=== PATIENT | male | born 1965 | race Caucasian/White ===

== ENCOUNTER 2017-11-21 09:22 | Inpatient (IN) | payer OTHER, MEDICAID ==
[~2017-11-21] VITALS: Ht 180.3 cm; Wt 80.3 kg
[2017-11-21 09:30] VITALS: BP 166/105
--- NOTE | 2017-11-21 09:45 | NUR ---
52/M BIB FAMILY c/o RIGHT LOWER ABDOME, LOWER BACK PAIN & bilateral foot numbness x1 week; and has not been on medication for about 8 months, pt states he only has his right kidney, c/o polyuria and polydipsia. HX [place], DM, high cholesterol, HTN, nephrectomy left kidney 1968, right hip replacement 1994. PT STATES LAST BM X 5 DAYS AGO. DENIES N/V/D; SKIN IS PINK/WARM/DRY; AAOX4 WITH EVEN AND STEADY GAIT; LUNGS CLEAR BL; PATIENT STATES PAIN OF 10/10 AT THIS TIME. PATIENT POSITIONED FOR COMFORT; HOB ELEVATED; BEDRAILS UP X2; BED DOWN. ER MD MADE AWARE OF PT STATUS.
[2017-11-21 10:11] LABS: BASOPHILS # (AUTO) 0.2 K/uL (0.00-0.22); BASOPHILS % (AUTO) 1.2 % (0.0-2.0); EOSINOPHILS % (AUTO) 0.3 % (0.0-4.0); HEMATOCRIT 45.7 % (36-52); HEMOGLOBIN 15.5 g/dL (12.0-18.0); LYMPHOCYTES % (AUTO) 5.9 % (20.5-51.1); MEAN CORPUSCULAR HEMOGLOBIN 26 pg (27-31); MEAN CORPUSCULAR HGB CONC 34 g/dL (33-37); MEAN CORPUSCULAR VOLUME 77.6 fL (80-94); MONOCYTES # (AUTO) 1.6 K/uL (0.8-1.0); MONOCYTES % (AUTO) 9.7 % (1.7-9.3); NEUTROPHILS # (AUTO) 13.7 K/uL (1.8-7.7); NEUTROPHILS % (AUTO) 82.9 % (42.2-75.2); PLATELET COUNT (AUTO) 392 K/uL (140-450); RED BLOOD CELL COUNT(AUTO) 5.89 MIL/uL (4.20-6.10); RED CELL DISTRIBUTION WIDTH 11.5 % (11.6-13.7); WHITE BLOOD COUNT (AUTO) 16.5 K/uL (4.8-10.8)
[2017-11-21 10:27] LABS: APPEARANCE,URINE CLEAR (CLEAR); BILIRUBIN,URINE NEGATIVE (NEGATIVE); BLOOD, URINE TRACE-I (NEGATIVE); COLOR,URINE YELLOW (YELLOW); LEUKOCYTE ESTERASE ,URINE NEGATIVE (NEGATIVE); NITRITE, URINE NEGATIVE (NEGATIVE); PH,URINE 5.5 (5.0-9.0); UGLUCOSE 3+ (NEGATIVE)
[2017-11-21 10:33] LABS: RBC,URINE 0-5 (RARE) /HPF (0-5); WBC,URINE NONE SEEN /HPF (0-5)
[2017-11-21 10:34] LABS: ALBUMIN 3.3 g/dL (3.4-5.0); ANION GAP 14.7 (8-16); CARBON DIOXIDE 30.1 mmol/L (21-32); CREATININE 1.5 mg/dL (0.7-1.3); POTASSIUM 3.8 mmol/L (3.5-5.1); TOTAL BILIRUBIN 0.7 mg/dL (0.0-1.0)
[2017-11-21] MEDS ORDERED: NACL 0.9% 1,000 ML IV ONE (10:40)
[2017-11-21] MEDS ORDERED: INSULIN REGULAR, HUMAN 100 UNIT/ML VIAL IV ONE (10:40)
[2017-11-21 10:49] LABS: PROTHROMBIN TIME 9.7 secs (10.8-13.4)
[2017-11-21] MEDS ORDERED: MORPHINE SULFATE 4 MG/ML SYR IVP ONE (11:10)
--- NOTE | 2017-11-21 11:31 | NUR ---
Patient being reevaluated by DR MOHR at bedside. PAIN 8/10 Patient appears to be resting comfortably in bed. BP 189/114; Respirations even and unlabored.WILL CONTINUE TO MONITOR.
[2017-11-21] MEDS ORDERED: MORPHINE SULFATE 2 MG/ML SYR IVP PRN (12:20)
[2017-11-21] MEDS ORDERED: LACTATED RINGERS 1,000 ML IV SCH (12:20)
[2017-11-21] MEDS ORDERED: MORPHINE SULFATE 4 MG/ML SYR IVP PRN (12:20)
[2017-11-21] MEDS ORDERED: ONDANSETRON 4 MG/2 ML VIAL IVP PRN (12:20)
--- NOTE | 2017-11-21 12:24 | NUR ---
PAIN 6/10 Patient appears to be resting comfortably in bed. BP 181/99, NOTIFIED DR MHOR; Respirations even and unlabored.WILL CONTINUE TO MONITOR
--- NOTE | 2017-11-21 12:37 | NUR ---
SPOKE TO [employer] ; FROM INSURANCE.WANT TTRANSFER PT TO [facility] OR [facility].
--- NOTE | 2017-11-21 13:15 | NUR ---
PATIENT BROUGHT TO [facility] VIA GURNEY FROM ER. RECEIVED REPORT AT THE BEDSIDE. PATIENT IS AAOX4, HAS NO SIGNS AND SYMPTOMS OF ACUTE DISTRESS NOTED AT THIS TIME. HAS IV TO THE RIGHT AC 20G ON HEP LOCK AT THIS TIME. PATIENTS SKIN IS INTACT. ORIENTED PATIENT TO THE ROOM. EXPLAINED CALL LIGHT TO HIM AND HE VERBALIZED UNDERSTANDING. PATIENT TO BE TRANSFERRED TO [facility] PER INSURANCE REQUEST. BED IN LOWEST POSITION, SIDE RAILS UP X2, CALL LIGHT PLACED WITHIN REACH. WILL CONTINUE TO MONITOR.
[2017-11-21 13:25] VITALS: BP 152/75
--- NOTE | 2017-11-21 13:27 | NUR ---
PATIENT ADMITTED TO ROOM 120A VIA GURNEY IN STABLE CONDITION WITH ALL BELONGINGS.
[2017-11-21] MEDS ORDERED: INSULIN LISPRO SLIDING SCALE 100 UNITS/ML VIAL SUBQ PRN (14:45)
[2017-11-21] MEDS ORDERED: DEXTROSE 50% 50 ML SYR IVP PRN (14:45)
[2017-11-21] MEDS ORDERED: PIPER/TAZO 3.375GM/D5W PREMIX 50 ML IV SCH (15:00)
[2017-11-21 15:51] LABS: CHOL/HDL RATIO 4.7 (1-4.5)
[2017-11-21] MEDS ORDERED: BLOOD GLUCOSE MONITORING 1 DEV DEV FS SCH (16:00)
[2017-11-21] MEDS ORDERED: hydrALAZINE 25 MG TAB PO SCH (17:00)
--- NOTE | 2017-11-21 17:05 | NUR ---
DISCHARGE ORDER IS IN PLACE TO TRANSFER PATIENT TO CONTRACTED FACILITY WHICH IS [facility]. PATIENT IS AAOX4, HAS NO SIGNS AND SYMPTOMS OF ACUTE DISTRESS NOTED AT THIS TIME. HAS IV TO THE RIGHT AC 20G, HEP LOCKED AT THIS TIME. PATIENT AWARE THAT HE IS BEING TRANSFERRED AND SIGNED CONSENT. SIGNED DISCHARGE PAPERS. [facility] HERE TO TRANSFER PATIENT. REPORT GIVEN TO [facility] STAFF.
--- NOTE | 2017-11-21 17:15 | NUR ---
CALLED AND SPOKE TO MIKY ON THE [facility] OF [facility]. GAVE HER REPORT FOR PATIENT.
[2017-11-22] MEDS ORDERED: ENOXAPARIN 40 MG/0.4 ML SYR SUBQ SCH (09:00)
--- NOTE | 2017-11-26 14:16 | NUR ---
CM NOTE RETRO REVIEW FAXED TO [facility] / FAX# [phone]
== END 2017-11-21 17:05 | disposition short-term general hospital (02) | DRG 637 ==
LOC: MED 09:22 → MTU 12:26
PROVIDERS: ADMIT Hospitalist; ATTEND Hospitalist
DX: E11.00 Type 2 diabetes mellitus with hyperosmolarity without nonketotic hyperglycemic-hyperosmolar coma (NKHHC) (principal); K85.90 Acute pancreatitis without necrosis or infection, unspecified; E11.65 Type 2 diabetes mellitus with hyperglycemia; I10 Essential (primary) hypertension; Z96.641 Presence of right artificial hip joint; G89.29 Other chronic pain; Z91.19 Patient's noncompliance with other medical treatment and regimen; Z90.5 Acquired absence of kidney; Z79.4 Long term (current) use of insulin
CPT/HCPCS: 36415; 80053; 81001; 82948; 83036; 83690; 83880; 84443; 84484; 85025; 85610; 85730; 87040; 87081; 87086; 96361; 96374; 99285; J1815; J2270; J2543; J7030; J7120

== ENCOUNTER 2018-07-30 12:10 | Emergency (ER) | payer OTHER, MEDICAID ==
[~2018-07-30] VITALS: Ht 180.3 cm; Wt 83.0 kg
[2018-07-30 12:21] VITALS: BP 146/78
[2018-07-30] MEDS ORDERED: KETOROLAC 30 MG/ML VIAL IM ONE (12:55)
[2018-07-30 14:29] VITALS: BP 140/84
== END 2018-07-30 14:29 | disposition home or self-care (01) ==
LOC: MED 12:10
DX: N43.3 Hydrocele, unspecified (principal); E11.9 Type 2 diabetes mellitus without complications; I10 Essential (primary) hypertension; E78.5 Hyperlipidemia, unspecified; M19.90 Unspecified osteoarthritis, unspecified site
CPT/HCPCS: 76870; 82948; 96372; 99284; J1885; Q0092; 81002